=== PATIENT | male | born 1990 | race African-American/Black ===

== ENCOUNTER 2018-11-10 18:43 | Emergency (ER) | payer SELFPAY ==
[~2018-11-10] VITALS: Ht 175.3 cm; Wt 64.4 kg
[2018-11-10 18:50] VITALS: BP 140/100; Ht 175.3 cm; Wt 64.4 kg
== END 2018-11-10 19:22 | disposition home or self-care (01) ==
LOC: ED 18:43
DX: K08.89 Other specified disorders of teeth and supporting structures (principal); K00.6 Disturbances in tooth eruption